=== PATIENT | male | born 1955 | race African-American/Black ===

== ENCOUNTER 2024-01-19 13:55 | Emergency (ER) | payer BC, SELFPAY ==
[2024-01-19 14:05] VITALS: BP 151/82; PULSE 80; TEMP 37.1; O2SAT 96; BMI 22.9
--- NOTE | 2024-01-19 15:21 | XR_ITS ---
The [address] [address] Patient Name: DEEPA MEJIA MRN: [id number] date: 1955 Sex: M Assigned Patient Location: ED.MAIN Current Patient Location: Accession/Order Number: [id number] Exam Date: 01/19/2024 15:55 Report Date: 01/19/2024 18:09 At the request of: ASHU DURON Procedure: XR cervical spine 2-3V EXAM: XR cervical spine 2-3V HISTORY: neck pain COMPARISON: None. TECHNIQUE: 4 views of the cervical spine FINDINGS: Mild reversal of the cervical lordotic curvature is seen, which may be related to patient positioning versus muscle spasm. The cervical vertebral bodies demonstrate normal height and alignment. No acute fracture is seen. Degenerative changes are seen at the C5-C6 and C6-C7 levels with mild loss of intervertebral disc height and endplate sclerosis. The visualized soft tissues appear grossly unremarkable. The visualized lung apices appear clear. XR/XR cervical spine 2-3V IMPRESSION: No obvious radiographic evidence for acute fracture or traumatic malalignment. Electronically authenticated by: MARY MURRAY Date: 01/19/2024 18:09
--- NOTE | 2024-01-19 15:22 | ED_ITS ---
HPI HPI - Extremity Injury (Upper) General Chief Complaint: Extremity Injury, Upper Stated Complaint: NECK AND L SHOULDER PAIN Time Seen by Provider: 01/19/24 15:07 Source: patient Mode of arrival: walk-in History of Present Illness HPI narrative: Patient is a 68-year-old male who presents to the emergency department for the evaluation of left-sided neck pain radiating into the left shoulder and down the arm. He denies any peripheral paresthesias or weakness to the left arm. He denies any midline spinal tenderness over the cervical spine. No low back pain. He is able to ambulate. No medications taken prior to arrival. He states symptoms have been present for the last week. No mechanism of injury or trauma. Related Data Home Medications ?Medication ?Instructions ?Recorded ?Confirmed allopurinol 300 mg tablet 300 mg PO DAILY 01/19/24 01/19/24 amlodipine 10 mg tablet 10 mg PO DAILY 01/19/24 01/19/24 metoprolol tartrate 100 mg tablet 100 mg PO Q12H 01/19/24 01/19/24 Previous Rx's ?Medication ?Instructions ?Recorded hydrocodone 5 mg-acetaminophen 325 1 tab PO Q6H PRN pain 3 days #12 01/19/24 mg tablet tabs methocarbamol 750 mg tablet 750 mg PO TID PRN pain #20 tabs 01/19/24 methylprednisolone 4 mg tablets in See Rx Instructions .Route 01/19/24 a dose pack (Medrol (Joshua)) .COMPLEX #21 ea Allergies Allergy/AdvReac Type Severity Reaction Status Date / Time No Known Drug Allergies Allergy Verified 01/19/24 14:05 Opioid HPI Opioid Management Most Recent Pain and Opioid Data: Last Pain Scale 10 01/19/24 15:29 01/19/24 Last MAR Pain Assessment 01/19/24 15:29 Review of Systems ROS Constitutional Denies: fever or chills Cardiovascular Denies: chest pain Respiratory Denies: shortness of breath Gastrointestinal Denies: nausea or vomiting Musculoskeletal Reports: neck pain; Denies: back pain Integumentary/Breast Denies: rash Neurological Denies: headache, numbness in extremities or weakness in extremities Hematologic/Lymphatic Denies: easy bruising or easy bleeding PFSH PFSH Social History Little interest or pleasure in doing things: not at all Feeling down, depressed, or hopeless: not at all Exam Narrative Exam Narrative: Gen.: Awake, alert, in no distress Head: Normocephalic, atraumatic ENT: Moist mucous membranes, diffuse tenderness of the paraspinal muscles of the left cervical spine into the left trapezius. Respiratory: No respiratory distress Extremities: Moves extremities equally, no injuries noted. 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 in the bilateral hands, no deficit biceps tendon strength of the upper extremities Psych: Normal mood and affect Neuro: No focal neuro deficit Skin: Warm, dry, intact Constitutional Vital Signs, click to edit/add: Last Vital Signs Temp 98.8 F 01/19/24 14:05 Pulse 80 01/19/24 14:05 Resp 20 01/19/24 14:05 BP 151/82 H 01/19/24 14:05 Pulse Ox 96 01/19/24 14:05 Course Vital Signs Vital signs: Vital Signs Temperature 98.8 F 01/19/24 14:05 Pulse Rate 80 01/19/24 14:05 Respiratory Rate 20 01/19/24 14:05 Blood Pressure 151/82 H 01/19/24 14:05 Pulse Oximetry 96 01/19/24 14:05 Temperature 98.8 F 01/19/24 14:05 Pulse Rate 80 01/19/24 14:05 Respiratory Rate 20 01/19/24 14:05 Blood Pressure 151/82 H 01/19/24 14:05 Pulse Oximetry 96 01/19/24 14:05 MDM - Extremity Injury (Upper) MDM Narrative Medical decision making narrative: Cervical x-rays with arthritis but no evidence of acute fracture or dislocation. Patient is neurovascularly intact with pain radiation into the left arm but no weakness or paresthesia. He will be treated for cervical radiculopathy with a short course of analgesics, muscle relaxants and steroids. Rest, ice, gentle stretching. Follow-up PCP and return to the ER if symptoms change or worsen SHARED APC VISIT, PHYSICIAN ATTESTATION: [id number] I performed a substantive part of the MDM during the patient?s E/M visit. I personally evaluated and examined the patient. I personally made or approved the documented management plan and acknowledge its risk of complications. Medical Records Attestation: I reviewed the patient's medical records. Imaging Data xr cervical spine: Attestation: I have reviewed the pertinent imaging results. Discharge Plan Discharge Chief Complaint: Extremity Injury, Upper Clinical Impression: Acute neck pain, Cervical radiculopathy Patient Disposition: Home, Self-Care Time of Disposition Decision: 16:15 Condition: Good Prescriptions / Home Meds: New hydrocodone-acetaminophen 5-325 mg tablet 1 tab PO Q6H PRN (Reason: pain) 3 Days Qty: 12 0RF Rx Instructions: DX: M54.2 methocarbamol 750 mg tablet 750 mg PO TID PRN (Reason: pain) Qty: 20 0RF methylprednisolone [Medrol (Joshua)] 4 mg tablets,dose pack See Rx Instructions .ROUTE .COMPLEX Qty: 21 0RF Rx Instructions: Taper as directed No Action allopurinol 300 mg tablet 300 mg PO DAILY amlodipine 10 mg tablet 10 mg PO DAILY metoprolol tartrate 100 mg tablet 100 mg PO Q12H Print Language: French Instructions: Cervical Radiculopathy (ED), Acute Neck Pain (ED) Referrals: Physician,Non-Staff, MD [Primary Care Provider] - 1 week
[2024-01-19] MEDS: METHYLPREDNISOLONE SOD SUCC PF 125 MG/2 ML VIAL IM (15:29)
[2024-01-19] MEDS: KETOROLAC TROMETHAMINE 60 MG/2 ML VIAL IM (15:29)
== END 2024-01-19 16:26 | disposition home or self-care (01) ==
PROVIDERS: Emergency Provider Emergency Medicine
DX: M54.12 Radiculopathy, cervical region (principal); M54.2 Cervicalgia
CPT/HCPCS: 72040; 96372; 99284; J1885; J2919